=== PATIENT | female | born 1990 | race Caucasian/White ===

== ENCOUNTER 2017-09-10 16:18 | Emergency (ER) | payer OTHER ==
[~2017-09-10] VITALS: Ht 154.9 cm; Wt 46.3 kg
[~2017-09-10 16:18] MED LIST: BUSPAR 5 MG TABL5 M1 PO; HYDROCODON-ACE1 EAC7 PO; HYDROCODON-ACE1 EACH PO; IBUPROFEN 800800 MG PO; NORCO 5-325 TA1 EACH PO; PENICILLIN V P500 MG PO; TRAMADOL 50 MG50 MG PO; ULTRAM 50MG TAB50 MG PO; ZOFRAN4 MG PO
[2017-09-10 17:15] LABS: URINE BILIRUBIN NEGATIVE (Negative); URINE BLOOD 2+ (Negative); URINE CLARITY CLEAR; URINE COLOR YELLOW; URINE GLUCOSE-RANDOM NEGATIVE (Negative); URINE KETONES NEGATIVE (Negative); URINE NITRITE-REFLEX NEGATIVE (Negative); URINE PROTEIN TRACE (Negative); URINE SPECIFIC GRAVITY <= 1.005 (1.005-1.030); URINE UROBILINOGEN 0.2 E.U./dl (0.2-1.0)
[2017-09-10 17:17] LABS: URINE LEUKOCYTES-REFLEX 3+ (Negative)
[2017-09-10 17:48] LABS: CASTS None Seen /LPF (None Seen); MUCUS None Seen strn/LPF (None Seen); SQUAMOUS >10 Many /LPF (0-3)
[2017-09-10 17:53] LABS: CRYSTALS None Seen /LPF (None Seen); URINE RBC 0-2 Rare /HPF (0-2)
[2017-09-10] MEDS ORDERED: TRAMADOL 50 MG50 MG PO (17:54)
[2017-09-10] MEDS ORDERED: BACTRIM DS TAB1 EACH PO (17:54)
[2017-09-10 18:03] VITALS: BP 113/69
== END 2017-09-10 18:04 | disposition home or self-care (01) ==
LOC: M.ERS 16:18
PROVIDERS: Physician Assistant
DX: N39.0 Urinary tract infection, site not specified (principal); Z87.891 Personal history of nicotine dependence; Z88.5 Allergy status to narcotic agent

== ENCOUNTER 2019-05-09 23:52 | Emergency (ER) | payer OTHER ==
[~2019-05-09] VITALS: Ht 152.4 cm; Wt 48.1 kg
[~2019-05-09 23:52] MED LIST changes: +BACTRIM DS TAB1 EACH PO
[2019-05-10] MEDS ORDERED: FLEXERIL PO (01:54)
[2019-05-10 03:01] VITALS: BP 126/81
== END 2019-05-10 03:03 | disposition home or self-care (01) ==
LOC: M.ERS 23:52
DX: M62.838 Other muscle spasm (principal); Z88.5 Allergy status to narcotic agent; G89.29 Other chronic pain